=== PATIENT | female | born 1950 | race Caucasian/White ===

== ENCOUNTER 2017-09-10 05:03 | Inpatient (IN) | payer OTHER ==
[2017-08-12 09:45] VITALS: BMI 37.0
--- NOTE | 2017-08-12 10:29 | PAT Medication Instructions ---
Service Date Aug 12, 2017. Current Home Medication List Acetaminophen (Tylenol Arthritis Ext Rel), 2 TAB PO TID Aspirin (Aspir-81), 1 TAB PO QOD Cholecalciferol (Vitamin D3), 1 CAP PO HS Coenzyme Q10 (Ubidecarenone) (Co Q-10), Unknown Dose HS Cyanocobalamin (Vitamin B12), Unknown Dose QAM Diclofenac (Voltaren), 50 MG PO QAM Labetalol (Normodyne), 100 MG PO 11 AM Magnesium Oxide (Magnesium), Unknown Dose PO QAM Metformin Hcl (Glucophage), 500 MG PO BID Rosuvastatin Calcium (Crestor), 10 MG PO HS Tizanidine (Zanaflex), 5 MG PO HS Medication Instructions For Your Scheduled Surgery -Continue as directed: Aspirin (Aspir-81), 1 TAB PO QOD -Follow your surgeon's instructions for: Diclofenac (Voltaren), 50 MG PO QAM - Hold the following medications 2 weeks prior to surgery: Coenzyme Q10 (Ubidecarenone) (Co Q-10), Unknown Dose HS - Hold the following medications the morning of surgery: Cyanocobalamin (Vitamin B12), Unknown Dose QAM Metformin Hcl (Glucophage), 500 MG PO BID Magnesium Oxide (Magnesium), Unknown Dose PO QAM - Take the following medications the morning of surgery with a sip of water: Labetalol (Normodyne), 100 MG PO 11 AM Acetaminophen (Tylenol Arthritis Ext Rel), 2 TAB PO TID (if needed, can be taken up to four hours before surgery) - Take the following medications as scheduled the night before surgery: Cholecalciferol (Vitamin D3), 1 CAP PO HS Metformin Hcl (Glucophage), 500 MG PO BID Acetaminophen (Tylenol Arthritis Ext Rel), 2 TAB PO TID Tizanidine (Zanaflex), 5 MG PO HS Rosuvastatin Calcium (Crestor), 10 MG PO HS If you have any questions please call us at [phone] or [phone] or [phone]
[2017-08-12 12:14] LABS: BASO % 0.2 %; BASO ABS # 0.01 K/uL (0-0.2); EOS % 2.6 %; EOS ABS # 0.12 K/uL (0-0.5); HEMOGLOBIN 13.6 g/dL (12.0-16.0); IG# 0.01 K/uL (0.00-0.02); LYMPH ABS # 0.91 K/uL (1.2-3.4); MEAN CELL VOLUME 88.2 fL (80-100); MEAN CORPUSCULAR HEMOGLOBIN 31.6 pg (25-34); MEAN CORPUSCULAR HGB CONC 35.8 g/dl (32-36); MEAN PLATELET VOLUME 9.6 fL (7.4-10.4); MONO % 14.5 %; MONO ABS # 0.66 K/uL (0.11-0.59); NEUT % 62.5 %; NEUT ABS # 2.83 K/uL (1.4-6.5); PLATELET COUNT 228 K/uL (130-400); RED CELL DISTRIBUTION WIDTH CV 12.7 % (11.5-14.5); RED CELL DISTRIBUTION WIDTH SD 41.3 fL (36.4-46.3); WHITE BLOOD COUNT 4.54 K/uL (4.8-10.8)
[2017-08-12 12:22] LABS: CALCIUM 9.1 mg/dl (8.5-10.1); CREATININE 0.77 mg/dl (0.60-1.20); POTASSIUM 3.8 mmol/L (3.5-5.1)
[2017-08-12 12:31] LABS: PTT PATIENT 23.6 SECONDS (21.0-31.0)
--- NOTE | 2017-08-12 12:34 | DIAGNOSTIC IMAGING REPORT ---
CHEST 2 VIEWS ROUTINE HISTORY: 67 years-old Female PAT preoperative exam. No acute chest complaints. COMPARISON: None available TECHNIQUE: PA and lateral views of the chest FINDINGS: Cardiac silhouette is mildly enlarged. Atherosclerosis of the aorta. Linear subsegmental opacity of the lateral left midlung is noted in addition to more subtle bibasilar subsegmental opacities suggesting atelectasis. There is no pneumothorax, pleural effusion, focal airspace consolidation or overt pulmonary edema. The bones of the chest appear grossly intact. IMPRESSION: Linear subsegmental atelectasis of the lung bases and lateral left midlung without acute process. The above report was generated using voice recognition software. It may contain grammatical, syntax or spelling errors. Electronically signed by: Rei Candelaria M.D. 08/12/2017 12:33 PM Dictated Date/Time: 08/12/2017 12:32 PM
[2017-08-12 12:37] LABS: HEMOGLOBIN A1C 6.4 % (4.5-5.6)
--- NOTE | 2017-09-07 08:54 | HISTORY & PHYSICAL EXAMINATION ---
DATE OF ADMISSION: 09/10/2017 CHIEF COMPLAINT: Left hip and leg pain. HISTORY OF PRESENT ILLNESS: The patient is a 67-year-old female who presents for surgical treatment of her left hip. She has about a 1-year history of gradually and progressively increasing left hip and leg pain. I saw her initially about a year ago and felt most of her pain was coming from her back. She has been seen by Dr. Dietrich and managed over time. It has become clear that more and more pain is coming from her hip. She describes buttock pain, groin pain, thigh pain. She has difficulty putting her shoes and socks on. Her walking tolerance is only a couple blocks. She has a history of Lyme disease but treated for this. Pain has been progressively becoming more debilitating and she would like to have her left hip replaced. X-rays have showed progressive hip arthritis. PAST MEDICAL HISTORY: 1. Hypertension. 2. Elevated cholesterol. 3. Sleep apnea. 4. Diabetes 7-8 years. 5. Arthritis. 6. Low back pain. 7. Kidney stones. PREVIOUS SURGERIES: Include: 1. Hysterectomy. 2. Harrison cyst removed from right knee. 3. Left wrist benign cyst removal. ALLERGIES: PENICILLIN WHICH CAUSES A RASH AND NO RESPIRATORY PROBLEMS. ALSO DESCRIBES ALLERGY TO DAYPRO WHICH CAUSES A RASH AND ERYTHROMYCIN. CURRENT MEDICINES: 1. Metformin 500 mg twice a day. 2. Tizanidine 5 mg a day. 3. Diclofenac 50 mg twice a day. 4. Labetalol 100 mg twice a day. 5. Crestor 10 mg a day. 6. Tylenol Arthritis 2 tablets every 8 hours. 7. Vitamin B12. 8. Coenzyme Q. 9. Vitamin D. 10. Magnesium. 11. Baby aspirin. SOCIAL HISTORY: A 67-year-old female. She is . Lives in [place]. Does not drink. FAMILY HISTORY: Significant for heart disease and diabetes. REVIEW OF SYSTEMS: Significant for diabetes, pretty well controlled. Denies any chest pain or shortness of breath. No evidence of DVT or PE. She does have a history of some nosebleeds on aspirin. PHYSICAL EXAMINATION: GENERAL: A pleasant middle-aged female. Looks to be in pretty good health. HEENT: Benign. NECK: Supple. No lymphadenopathy. LUNGS: Clear to auscultation. HEART: Regular rate and rhythm. ABDOMEN: Soft, nontender, nondistended. EXTREMITIES: Grossly neurovascularly intact except as follows: Examination of left hip and leg reveals the patient walks with a little bit of a limp. Leg lengths clinically appear pretty equal. She does have marked pain with any type of hip motion, particularly internal rotation. She can internally rotate to neutral. Negative straight leg raise. NEUROLOGIC: She is neurologically intact. X-RAYS: X-rays of left hip were reviewed, show advanced left hip DJD. She has complete loss of her joint space. Fairly concentric disease. Bone structure otherwise looks good. X-rays of the lumbar spine reviewed, show some moderate degenerative spondylosis with a little bit of spondylolisthesis of L4-L5, grade 1. ASSESSMENT: A 67-year-old white female with gradual and progressive increasing hip pain over the past year, has become more debilitating, which showed progressive hip arthritis. She has failed conservative care and would like to have her left hip replaced. PLAN: We will take her to the operating room and do left total hip replacement. The risks and benefits of the procedure were explained to the patient including but not limited to DVT, PE, , infection, neurological injury, vascular injury, bleeding problem, pain with range of motion, stiffness, failure to relieve her symptoms, incomplete relief of symptoms, need for further surgery in future, fracture, leg length inequality, nerve palsy, etc. The patient understands and desires to proceed. Informed consent was obtained. I did explain to her that this is not going to fix her back issues but I do not think it is going to help her markedly. We will plan on DVT prophylaxis including low dose aspirin twice a day. If she has nosebleeds, we will have to adjust this. We did talk about holding her metformin 2 days preop and taking her labetalol the morning of surgery. She stopped her diclofenac. She is planning to be discharged home and using [facility] home health program.
[~2017-09-10] VITALS: Ht 152.4 cm; Wt 84.4 kg
[2017-09-10] VITALS (18 sets, daily range): BP systolic 124–189; BP diastolic 76–91; PULSE 52–78; TEMP 36.4–37; O2SAT 90–100; Ht 152.4 cm; Wt 84.4 kg
[~2017-09-10 05:03] MED LIST: ACET1TAB84 PO; ASPI-232 PO; CHOL2000 PO; COEN50CA2; CYAN100020; DICL50TA3 PO; GLC/500 PO; LABE1TAB28 PO; MAGN1TAB41 PO; ROSU5TAB PO; TIZA4CAP PO
[2017-09-10] MEDS: TRANEXAMIC ACID INJ 1,000 MG x 1 Bag Preop IV SCH ×4 (05:49→06:49)
[2017-09-10] MEDS ORDERED: FAMOTIDINE 20 MG TAB PO SCH (06:00)
[2017-09-10] MEDS ORDERED: LACTATED RINGER'S 1000ML IV SCH (06:00)
[2017-09-10] MEDS ORDERED: ACETAMINOPHEN 500 MG TAB PO SCH (06:00)
[2017-09-10] MEDS ORDERED: CEFAZOLIN 2000MG IV PUSH 15 ML IV SCH ×2 (06:00)
[2017-09-10] MEDS ORDERED: LACTATED RINGER'S 1000ML 500 ML IV SCH (06:00)
[2017-09-10] MEDS ORDERED: METOCLOPRAMIDE HCL 10 MG TAB PO SCH (06:00)
[2017-09-10] MEDS ORDERED: LACTATED RINGER'S 1000ML 1,000 ML IV SCH (06:00)
[2017-09-10] MEDS ORDERED: GABAPENTIN 300 MG CAP PO SCH (06:00)
[2017-09-10] MEDS ORDERED: SCOPOLAMINE 1.5 MG TDSY TD ONE (06:05)
[2017-09-10] MEDS ORDERED: BUPIVACAINE 0.5 % 5 MG/1 ML PF 10ML VIAL ONE (06:28)
[2017-09-10] MEDS ORDERED: SCOPOLAMINE 1.5 MG TDSY TD SCH (06:30)
[2017-09-10] MEDS ORDERED: LIDOCAINE HCL 2% 2 ML VIAL (20MG/ML) ONE (06:36)
[2017-09-10] MEDS ORDERED: FENTANYL CITRATE INJ 50 MCG/1 ML 2 ML VIAL ONE (06:36)
[2017-09-10] MEDS ORDERED: PROPOFOL IV EMULSION 10 MG/ML 20 ML VIAL IV ONE (06:36)
[2017-09-10] MEDS ORDERED: MIDAZOLAM HCL 1 MG/ML 2ML VIAL ONE ×2 (06:37)
[2017-09-10] MEDS ORDERED: BUPIVACAINE/EPINEPHRINE 0.5% MPF 1:200,000 30 ML VIAL ONE (06:38)
[2017-09-10] MEDS ORDERED: BACITRACIN 50000 UNIT VIAL ONE (06:38)
--- NOTE | 2017-09-10 06:46 | History & Physical Bridge Note ---
H&P Re-Evaluation Bridge Note: I have examined the patient, reviewed the History & Physical and in the interval since the performance of the History & Physical I have noted the following changes of clinical significance: No changes noted
[2017-09-10] MEDS ORDERED: MoRPHine SULFATE PF 1 MG/ML 10 ML AMP/VIAL ONE (06:48)
[2017-09-10] MEDS ORDERED: SODIUM CHLORIDE 0.9% 1000ML 1,000 ML IV PRN (06:58)
[2017-09-10] MEDS ORDERED: LACTATED RINGER'S 1000ML 500 ML IV PRN (06:58)
[2017-09-10] MEDS ORDERED: NALOXONE HCL INJ 0.08 MG in SYRINGE 1.8 ML IV PRN (06:58)
[2017-09-10] MEDS ORDERED: NALOXONE HCL INJ 1 MG in SODIUM CHLORIDE 0.9% 1000ML 1,000 ML IV PRN (06:58)
[2017-09-10] MEDS ORDERED: ATROPINE SULFATE 0.1 MG/ML 5ML SYR IV PRN (07:00)
[2017-09-10] MEDS ORDERED: MEPERIDINE HCL 25 MG/ML CARP IV PRN (07:00)
[2017-09-10] MEDS ORDERED: DiphenhydrAMINE HCL 50 MG/ML VIAL IV PRN ×2 (07:00→08:45)
[2017-09-10] MEDS ORDERED: NALOXONE HCL 0.4 MG/1 ML VIAL/CARP IV PRN (07:00)
[2017-09-10] MEDS ORDERED: EpHEDrine SULFATE INJ 50 MG/ML AMP IV PRN ×2 (07:00)
[2017-09-10] MEDS ORDERED: NO NARCOTICS OR SEDATIVES SCH (07:00)
[2017-09-10] MEDS ORDERED: MoRPHine SULFATE PF 1 MG/ML 10 ML AMP/VIAL EPI PRN (07:00)
[2017-09-10] MEDS ORDERED: NALBUPHINE HCL INJ 10 MG/ML AMP IV PRN (07:00)
[2017-09-10] MEDS ORDERED: ONDANSETRON INJ 2 MG/ML 2 ML VIAL IV PRN (07:00)
[2017-09-10] MEDS ORDERED: FENTANYL CITRATE INJ 50 MCG/1 ML 2 ML VIAL IV PRN (07:00)
--- NOTE | 2017-09-10 08:36 | [facility] Post Operative Brief Note ---
Immediate Operative Summary Operative Date Sep 10, 2017. Pre-Operative Diagnosis Advanced Left Knee Degenerative Joint Disease Post-Operative Diagnosis Advanced Left Knee Degenerative Joint Disease Procedure(s) Performed Left Total Hip Arthroplasty Uncemented Surgeon Dr Zay Archibald Product Development Worker Surgeon(s) Marty Romano PA-C Estimated Blood Loss 200cc Findings Consistent with Post-Op Diagnosis Specimens As Per Surgeon A. Left Femoral Head Drains None Anesthesia Type Spinal MAC Complication(s) none Disposition Accompanied Pt To Recover: yes Disposition: Recovery Room / PACU
[2017-09-10] MEDS ORDERED: METOCLOPRAMIDE HCL INJ 5 MG/ML 2 ML VIAL IV PRN (08:45)
[2017-09-10] MEDS ORDERED: GLUCOSE 10 TABS/TUBE PO PRN (08:45)
[2017-09-10] MEDS ORDERED: MAGNESIUM HYDROXIDE SUSP 30 ML UDC PO PRN (08:45)
[2017-09-10] MEDS ORDERED: GLUCAGON FOR INJ 1 MG VIAL SQ PRN (08:45)
[2017-09-10] MEDS ORDERED: GLUCOSE 40% GEL 15 GM TUBE PO PRN (08:45)
[2017-09-10] MEDS ORDERED: DEXTROSE 50% 50 ML SYR IV PRN (08:45)
[2017-09-10] MEDS ORDERED: SILVER SULFADIAZINE 1% CR 50 GM JAR EXT PRN (08:45)
[2017-09-10] MEDS ORDERED: BISACODYL 10 MG SUPP PR PRN (08:45)
[2017-09-10] MEDS ORDERED: ALUMINUM/MAGNESIUM/SIMETH (MAALOX MAX) 30 ML UDC PO PRN (08:45)
--- NOTE | 2017-09-10 09:11 | OPERATIVE REPORT ---
DATE OF OPERATION: 09/10/2017 SURGEON: Zay Archibald MD. RESPONDER: SADIE Martinez. PREOPERATIVE DIAGNOSIS: Left hip degenerative joint disease. POSTOPERATIVE DIAGNOSIS: Same. PROCEDURE PERFORMED: Left uncemented ceramic on highly cross-linked polyethylene total hip arthroplasty. COMPLICATIONS: None. ESTIMATED BLOOD LOSS: 200 mL FLUID REPLACEMENT: 1100 mL crystalloid fluid replacement. ANESTHESIA: Spinal. DRAINS: None. SPECIMENS: Left femoral head sent for pathology. OPERATIVE INDICATIONS: The patient is a 67-year-old female who has had a 1-year history of markedly progressive increasing left hip pain and discomfort. She has been through extensive and conservative management without adequate relief. X-rays show progressive hip arthritis over the past year. The patient elected to proceed with total hip arthroplasty. OPERATIVE FINDINGS: Operative findings revealed advanced left hip DJD. She had grade 4 [id number] disease of the femoral head and acetabulum. She did have some osteophytes, particularly at the base of the femoral neck as well as the acetabulum. OPERATIVE IMPLANTS: Operative implants consisted of: 1. Biomet G7 size 48 mm acetabular shell. 2. 6.5 cancellous acetabular screws, 1 at 35 mm length and 1 at 25 mm length. 3. An apex hole eliminator. 4. A highly cross-linked polyethylene liner with a 48 mm outer diameter and 28 mm inner diameter. 5. A DePuy Corail size 10 coxa vara femoral stem. 6. A +1.5/28 mm ceramic articular ball. OPERATIVE PROCEDURE: The patient taken to the operating room, identified and placed on the operating table in supine position. All contact areas were appropriately padded. IV antibiotics were provided by anesthesia team. Spinal anesthetic had been implemented in the holding area. Muller catheter was placed in sterile fashion. The patient was then placed in the right lateral decubitus position. An axillary roll was placed. Stulberg hip positioner was used for positioning. Left hip and leg were then prepped and draped in usual sterile fashion. A posterolateral approach to the left hip was then performed through a curvilinear incision centered over the greater trochanter. Sharp dissection was carried out through subcutaneous tissue down to the level of the IT band and gluteal fascia. The IT band and gluteal fascia were then incised longitudinally in line with skin incision. The underlying greater trochanteric bursa was excised. The bursa was quite thickened. The piriformis and external rotators were then tagged and taken off the posterior aspect of the hip joint capsule. Great care was taken throughout the procedure to protect the sciatic nerve at all times. Posterior capsulotomy was then performed, leaving a large flap for later repair. Hip was internally rotated and dislocated. Femoral neck osteotomy cut was made with the final cut about 10 mm above the lesser trochanter. Femoral head was removed and sent for pathology. The femur was retracted anteriorly. Attention was then drawn to the acetabulum. The acetabular labrum was excised. The pulvinar fat was excised. Sequential reaming of the acetabulum was then performed beginning with a size 43 and progressing up to a 47. A 48 mm Biomet G7 acetabular shell was then placed in about 40 degrees of lateral opening and 20 degrees of anteversion. It was fixed with two 6.5 cancellous acetabular screws. A trial liner was placed. Some osteophytes were taken off the anterior aspect of the acetabulum. Our attention was then drawn to the femur. The proximal femur was entered with a cookie cutter, followed by a canal finder. I then broached beginning with a size 8 and progressing up to a 10. We got excellent fit with the 10. I then used a calcar reamer to smoothen off the calcar. We then trialed the hip and the +5 articular ball provided full stability but the soft tissue tension just seemed tight and with increased offset. Therefore, I elected to place the 1.5 head which provided full stability in full extension and external rotation and flexion to 90 degrees, internal rotation to 50+ degrees. Leg lengths appeared equal. Soft tissue tension seemed appropriate. We elected to place these implants. All trial implants were removed. An apex hole eliminator was placed. Highly cross-linked polyethylene liner was placed. A size 10 Corail coxa vara femoral stem was then impacted in position. A +1.5/28 mm ceramic articular ball was placed. The hip was located and once again found to be stable. Attention was then drawn toward closing. The wound was irrigated with copious amounts of pulsatile lavage solution. I did inject locally with 60 mL of 0.5% Marcaine with epinephrine. The posterior capsule and external rotators were repaired through drill holes in the posterior trochanter with #2 Ti-Cron suture. The IT band and gluteal fascia were then closed with #1 PDS suture in running fashion. Subcutaneous tissue then closed in 2 layers with the deep layer with #2 Vicryl suture and subcutaneous tissues with 2-0 Dexon suture in buried interrupted fashion. Skin was closed with skin linden. Leg was then cleaned, dried, and a sterile dressing of Xeroform, 4 x 4's, sterile ABD pad and foam tape was applied. The patient then transferred to the recovery room in stable condition. The patient tolerated the procedure well with no complication. All needle and sponge counts were correct at the end of the operation. I attest to the content of the Intraoperative Record and any orders documented therein. Any exception s are noted below.
--- NOTE | 2017-09-10 09:27 | Anesthesiology Progress Note ---
Anesthesia Post Op Note Date & Time Sep 10, 2017 at 09:27 Vital Signs Pain Intensity: 0 Vital Signs Past 12 Hours Date Time Temp Pulse Resp B/P (MAP) Pulse Ox O2 Delivery O2 Flow Rate FiO2 09/10/17 09:22 37.1 61 15 09/10/17 09:22 60 15 171/83 94 09/10/17 09:17 65 12 09/10/17 09:17 66 12 164/95 96 09/10/17 09:12 56 13 154/69 96 09/10/17 09:12 56 13 09/10/17 09:07 58 18 153/73 96 09/10/17 09:07 58 18 09/10/17 09:02 59 12 152/73 93 09/10/17 09:02 59 12 09/10/17 08:57 58 13 171/81 95 09/10/17 08:57 59 13 09/10/17 08:52 64 13 09/10/17 08:52 64 13 160/78 97 09/10/17 08:47 73 13 95 09/10/17 08:47 73 13 09/10/17 08:46 158/74 09/10/17 08:42 71 16 09/10/17 08:42 71 16 134/71 98 09/10/17 08:39 126/60 09/10/17 08:32 37 71 16 122/62 97 Nasal Cannula 3 09/10/17 05:36 36.6 74 18 180/86 97 Room Air Notes Mental Status: alert / awake / arousable, participated in evaluation Pt Amnestic to Procedure: Yes Nausea / Vomiting: adequately controlled Pain: adequately controlled Airway Patency, RR, SpO2: stable & adequate BP & HR: stable & adequate Hydration State: stable & adequate Neuraxial Anesthesia: was administered, sensory block is resolving Anesthetic Complications: no major complications apparent
--- NOTE | 2017-09-10 09:50 | DIAGNOSTIC IMAGING REPORT ---
L PELVIS/UNILATERAL HIP 1 VIEW CLINICAL HISTORY: Left hip osteoarthritis. Arthroplasty. COMPARISON: Left hip radiographs June 20, 2017. FINDINGS: Alignment of the total left hip arthroplasty is anatomic. There are skin linden and 2 acetabular screws. There is no fracture or unexpected radiopaque foreign body. IMPRESSION: Expected findings following total left hip arthroplasty. Electronically signed by: Jack Altamirano M.D. 09/10/2017 9:49 AM Dictated Date/Time: 09/10/2017 9:48 AM
[2017-09-10] MEDS: ONDANSETRON INJ 2 MG/ML 2 ML VIAL IV PRN ×2 (09:55→16:24)
[2017-09-10] MEDS: DOCUSATE SODIUM 100 MG CAP PO SCH ×2 (10:23→20:13)
[2017-09-10] MEDS: SODIUM CHLORIDE 0.9% 1000ML 1,000 ML IV SCH ×2 (10:24→20:14)
[2017-09-10] MEDS: KETOROLAC TROMETHAMINE 15 MG/ML VIAL IV. SCH ×3 (11:27→23:53)
[2017-09-10] MEDS: INSULIN HUMAN REGULAR SC SCH ×3 (11:53→20:53)
[2017-09-10] MEDS: FERROUS GLUCONATE 324 MG TAB PO SCH ×2 (11:55→17:45)
[2017-09-10] MEDS: ACETAMINOPHEN 500 MG TAB PO SCH ×2 (13:31→22:08)
[2017-09-10] MEDS: CEFAZOLIN IV 2,000 MG in SYRINGE 0 ML IV SCH ×2 (14:27→22:08)
[2017-09-10] MEDS ORDERED: TRANEXAMIC ACID INJ 1,000 MG in SODIUM CHLORIDE 0.9% 100ML 100 ML IV SCH (14:30)
--- NOTE | 2017-09-10 16:57 | PROGRESS NOTE ---
DATE: 09/10/2017 SUBJECTIVE: A 67-year-old white female postop from a left hip replacement. Doing pretty well. No pain at all yet. Mostly just nausea. She has had a couple of emesis. Denies any chest pain or shortness of breath. OBJECTIVE: VITAL SIGNS: Temperature 36.5. Vital signs stable. Blood pressure is slightly elevated. GENERAL: Reveals a pleasant elderly female. She is sitting up in bed. Currently not ill but ____ feeling quite nauseated. LUNGS: Clear to auscultation. HEART: Regular rate and rhythm. ABDOMEN: Soft, nontender, nondistended. EXTREMITIES: Grossly neurovascularly intact except as follows: Examination of left leg reveals leg lengths were equal. Dressing is clean, dry and intact. Thigh is soft and supple. Hip is located. She can dorsiflex and plantarflex her foot appropriately. She is neurologically intact. ASSESSMENT: A 67-year-old white female postop from a left hip replacement, doing pretty well. The main issue is nausea likely related to the intraspinal morphine. She has a scopolamine patch in place. She has given some antinausea medicine. PLAN: 1. DVT prophylaxis including thigh TEDs, SCDs, and aspirin twice a day. 2. PT/OT. Weightbear as tolerated. Left total hip protocol. 3. Pain control, doing well with current pain regimen. 4. Nausea. Will continue antinausea medicine. Continue IV hydration. 5. IV antibiotics x24 hours. 6. Disposition: Plan to discharge to home with home health once adequately recovered.
[2017-09-10] MEDS: CHOLECALCIFEROL 1000 INTER.UNIT TAB PO SCH (20:12)
[2017-09-10] MEDS: ROSUVASTATIN CALCIUM 10 MG TAB PO SCH (20:13)
[2017-09-10] MEDS: ASPIRIN 81 MG ECTAB PO SCH (20:13)
[2017-09-10] MEDS: SENNA 8.6 MG TAB PO SCH (20:13)
[2017-09-10] MEDS ORDERED: FRRG PO (20:41)
[2017-09-10] MEDS ORDERED: ASPEC81 PO (20:41)
[2017-09-10] MEDS ORDERED: ACET-24 PO (20:41)
[2017-09-10] MEDS ORDERED: ULT50X PO (20:41)
--- NOTE | 2017-09-10 20:44 | Discharge Instructions ---
Discharge Instructions Date of Service Sep 10, 2017. Admission Reason for Admission: Left Hip Degenerative Joint Disease Discharge Discharge Diagnosis / Problem: Left Hip Replacement Discharge Goals Goal(s): Decrease discomfort, Improve function, Increase independence, Improve disease control, Therapeutic intervention Activity Recommendations Activity Limitations: per Instructions/Follow-up section (Total Hip Precautions ) Weightbearing Status: Left weightbearing . Instructions / Follow-Up Instructions / Follow-Up ACTIVITY RECOMMENDATIONS: Physical Therapy: * Aggressive physical therapy is not usually needed. You will learn to take care of yourself safely and walk. * Follow the "Hip Precautions Instructions." * In some cases, the 7th grade social studies teacher at the hospital will arrange to have a therapist come to your house for the first couple of weeks to help you learn these skills. * You need to practice on your own or with the help of a family member as needed. * When you learn these skills, most of the therapy can be done on your own. Home Exercise: * You were shown a series of exercises in the hospital. Do these exercises three to four times each day including the exercises you were shown in physical therapy. Walking: * Get up and walk several times each day. For the first four weeks, try not to stand or walk for more than one hour at a time. If you do stand or walk for more than one hour, you will not hurt anything, but your leg will likely swell. * As you feel comfortable, you may change from the walker or crutches to a cane and then to independent walking. MEDICATIONS: New Medicine: * You will likely be taking one or more of these medicines: 1. Tramadol - Take, as directed, when you need it, every four to six hours to control your pain. 2. Iron Sulfate - Take two times each day for the month after surgery to help you replace the blood lost during surgery. 3. Aspirin - Thins your blood to lessen the chance of forming a blood clot. * The most common side effects of pain medicine and iron are nausea and constipation. If nausea or constipation is too much of a problem or if you have any questions about your new medicines or doses, call [facility] at [phone]. We will try to help you manage these issues. VERY IMPORTANT TO READ AND REVIEW" Pain: * The immediate post-operative period after hip replacement surgery is often quite painful. * You are given a prescription for pain medicine. You should take it, as directed, when you need it, especially before physical therapy and before going to bed. Pain that interferes with sleep is very common and can last several months. * You will likely need pain medicine for the first two to four weeks. It will not stop all of the pain. The pain will lessen and as you feel better, you may change to milder pain medicine such as Tylenol. * The most common side effects of pain medicine are nausea and constipation, so don't take more than you need. SPECIAL CARE INSTRUCTIONS: TEDs/Elastic Stockings: * The white elastic stockings help limit swelling and prevent blood clots from forming in your legs. The more you wear them, the more they work. * Wear them for six weeks. Prevention of Infection: * Take antibiotics one hour before any dental cleaning, dental work, urological procedure, gastrointestinal procedure or any invasive surgery in order to prevent your new joint from getting infected. * You may get the antibiotics from the doctor performing the procedure or you may call our office at before and we will call in a prescription to the pharmacy of your choice. Things to Watch For: * Drainage from the incision site that occurs more than one week after your surgery. * Severely increased leg pain or swelling. * Increased redness at the incision site. * Fever above 102 degrees Fahrenheit. * Unusual chest pain or shortness of breath. * Unusual pain or burning with urination. Call [facility] at with any of the above problems or if you have any questions about your medicines or recovery. FOLLOW UP VISIT: Make an appointment to see your doctor for approximately two weeks after surgery for a progress check and staple removal by calling the office at . Current Hospital Diet Patient's current hospital diet: Diabetes Type 2 Diet Discharge Diet Recommended Diet: Diabetes Type 2 Diet Procedures Procedures Performed: Left Total Hip Arthroplasty Uncemented Pending Studies Studies pending at discharge: no Laboratory Results Hemoglobin A1c Test 08/12/17 10:45 Range/Units Estimated Average Glucose 137 mg/dl Hemoglobin A1c 6.4 H 4.5-5.6 % Medical Emergencies . Who to Call and When: Medical Emergencies: If at any time you feel your situation is an emergency, please call [phone] immediately. . Non-Emergent Contact Non-Emergency issues call your: Surgeon . "Provider Documentation" section prepared by Zay Archibald. .
[2017-09-11] VITALS (8 sets, daily range): BP systolic 127–199; BP diastolic 70–78; PULSE 71–107; TEMP 36.4–37.1; O2SAT 92–99
[2017-09-11] MEDS ORDERED: ZOLPIDEM TARTRATE 5 MG TAB PO PRN (01:00)
[2017-09-11] MEDS ORDERED: DC INTRASPINAL MORPHINE SCH (01:00)
[2017-09-11] MEDS ORDERED: HYDROmorphone INJ 0.5 MG/0.5 ML SYR IV PRN (01:00)
[2017-09-11] MEDS ORDERED: ONDANSETRON INJ 2 MG/ML 2 ML VIAL IV PRN (01:00)
[2017-09-11] MEDS: KETOROLAC TROMETHAMINE 15 MG/ML VIAL IV. SCH (05:50)
[2017-09-11] MEDS: ACETAMINOPHEN 500 MG TAB PO SCH ×3 (05:50→22:27)
[2017-09-11] MEDS: SODIUM CHLORIDE 0.9% 1000ML 1,000 ML IV SCH (05:51)
--- NOTE | 2017-09-11 06:25 | Clinical Documentation Query ---
CLINICAL DOCUMENTATION QUERY A discrepancy exists in the Operative Summary Note. Pre-Operative and Post-Operative Diagnosis lists "Advanced Left Knee Degenerative Joint Disease" and Procedure Performed lists "Left Total Hip Arthroplasty Uncemented". In your clinical opinion is this patient being managed for: ( x ) Advanced Left Hip Degenerative Joint Disease ( ) Not Agree ( ) Other explanation of clinical findings (Please Explain) ( ) Unable to determine (Please Define) ( ) Need to Discuss Please clarify and document your clinical opinion in the progress notes and discharge summary. Terms such as "probable", "suspected", "likely", "questionable", "possible", or "still to be ruled out" are acceptable. IF IN AGREEMENT, YOU MUST DOCUMENT ABOVE DIAGNOSTIC STATEMENT IN DAILY PROGRESS NOTES AND DISCHARGE SUMMARY. This document is not part of the patient's record. Thank You, Gale Cervantes RN [phone]
[2017-09-11 06:50] LABS: BASO % 0.1 %; BASO ABS # 0.01 K/uL (0-0.2); EOS % 0.5 %; EOS ABS # 0.05 K/uL (0-0.5); HEMATOCRIT 34.5 % (37-47); HEMOGLOBIN 12.1 g/dL (12.0-16.0); IG# 0.04 K/uL (0.00-0.02); LYMPH % 17.4 %; MEAN CELL VOLUME 89.6 fL (80-100); MEAN CORPUSCULAR HEMOGLOBIN 31.4 pg (25-34); MEAN CORPUSCULAR HGB CONC 35.1 g/dl (32-36); MEAN PLATELET VOLUME 9.4 fL (7.4-10.4); MONO % 10.1 %; MONO ABS # 1.04 K/uL (0.11-0.59); NEUT % 71.5 %; NEUT ABS # 7.39 K/uL (1.4-6.5); PLATELET COUNT 223 K/uL (130-400); RED CELL DISTRIBUTION WIDTH CV 13.5 % (11.5-14.5); RED CELL DISTRIBUTION WIDTH SD 43.9 fL (36.4-46.3); WHITE BLOOD COUNT 10.33 K/uL (4.8-10.8)
[2017-09-11 07:19] LABS: CALCIUM 8.5 mg/dl (8.5-10.1); CREATININE 1.29 mg/dl (0.60-1.20); POTASSIUM 3.8 mmol/L (3.5-5.1)
[2017-09-11] MEDS: DOCUSATE SODIUM 100 MG CAP PO SCH ×2 (09:21→21:00)
[2017-09-11] MEDS: INSULIN HUMAN REGULAR SC SCH ×4 (09:21→21:00)
[2017-09-11] MEDS: PANTOprazole SOD 40 MG TAB PO SCH (09:22)
[2017-09-11] MEDS: FERROUS GLUCONATE 324 MG TAB PO SCH ×4 (09:23→17:45)
[2017-09-11] MEDS: LABETALOL HCL 100 MG TAB PO SCH (09:23)
[2017-09-11] MEDS: MULTIVITAMIN TAB PO SCH (09:24)
[2017-09-11] MEDS: ASPIRIN 81 MG ECTAB PO SCH ×2 (09:24→21:00)
--- NOTE | 2017-09-11 10:14 | PROGRESS NOTE ---
DATE: 09/11/2017 SUBJECTIVE: A 67-year-old white female postop day 1 from a left hip replacement. She is doing much better. The nausea is gone. Denies any significant pain. No chest pain or shortness of breath. Not feeling dizzy or lightheaded. OBJECTIVE: VITAL SIGNS: Temperature 36.5. Vital signs stable. GENERAL: Reveals a pleasant, middle-aged female. She is sitting up in bed, looks quite comfortable. LUNGS: Clear to auscultation. HEART: Regular rate and rhythm. ABDOMEN: Soft, nontender, nondistended. EXTREMITIES: Grossly neurovascularly intact except as follows. Examination of the left hip and leg reveals the leg to be well aligned. Hip is located. Dressing is clean, dry and intact. Her thigh is soft and supple. She can dorsiflex and plantarflex her foot appropriately. LABORATORY DATA: Hemoglobin 12.1, hematocrit 34.5. Electrolytes are stable. Creatinine is slightly elevated. ASSESSMENT: A 67-year-old white female postop day 1 from a left hip replacement, doing pretty well. Pain is controlled. Hip is located. She is neurologically intact. Blood pressure is improved. PLAN: 1. DVT prophylaxis including thigh high TEDs, SCDs, and aspirin twice a day. 2. PT, OT. Weight bear as tolerated. Left total hip protocol. 3. Pain control, doing pretty well with current pain regimen. We are going to stop her Toradol due to the elevated creatinine. 4. Disposition: She is hoping to be discharged to home with home health once adequately recovered.
[2017-09-11] MEDS: CHECK SCOPOLAMINE PATCH PLACEMENT SCH ×2 (15:49→23:38)
[2017-09-11] MEDS: ROSUVASTATIN CALCIUM 10 MG TAB PO SCH (21:00)
[2017-09-11] MEDS: SENNA 8.6 MG TAB PO SCH (21:00)
[2017-09-11] MEDS: CHOLECALCIFEROL 1000 INTER.UNIT TAB PO SCH (21:00)
[2017-09-11] MEDS: TRAMADOL HCL 50 MG TAB PO PRN (23:47)
[2017-09-12 00:25] VITALS: BP 190/79; PULSE 106
--- NOTE | 2017-09-12 02:01 | Medical Consult ---
Consultation Date of Consultation: Sep 12, 2017. Attending Physician: Zay Archibald M.D. Reason for Consultation: Blood pressure medical management History of Present Illness Patient is a 67yo C female with history of HTN, HLP, DM s/p left hip arthroplasty POD#1. Patient is complaining of discomfort, "restlessness" and spasm of the left leg this evening. She has had some elevated blood pressure readings as well, 190/79 at present. Patient has a history of HTN for which she takes Labetalol 100mg po daily as an outpatient. She reports that her blood pressure is well controlled on this regimen. She was taking the Labetalol BID in the past which caused her headaches. She was administered Tramadol at 23:47 with minimal improvement in discomfort. She refused Zanaflex this evening. No additional complaints. Past Medical/Surgical History 1. Hypertension 2. Diabetes - 7-8 years, well controlled on Metformin 500mg po BID - AIC=6.4 3. HLP 4. CACHORRO - on CPAP qHS 5. Lyme disease s/p treatment 6. Kidney stones 7. Low back pain Family History Diabetes Heart disease Social History Smoking Status: Never Smoker Smokeless Tobacco Use: No Alcohol Use: none Drug Use: none Marital Status: Housing Status: lives with family Allergies Coded Allergies: Oxaprozin (Verified Allergy, Intermediate, RASH, 09/10/17) Penicillins (Verified Allergy, Intermediate, HIVES, 09/10/17) Erythromycin (Verified Adverse Reaction, Mild, N/V, 09/10/17) Home Medications 1. Metformin 500 mg twice a day. 2. Tizanidine 5 mg a day. 3. Diclofenac 50 mg twice a day. 4. Labetalol 100 mg daily. 5. Crestor 10 mg a day. 6. Tylenol Arthritis 2 tablets every 8 hours. 7. Vitamin B12. 8. Coenzyme Q. 9. Vitamin D. 10. Magnesium. 11. Baby aspirin. Current Inpatient Medications Current Inpatient Medications Medications (Trade) Dose Ordered Sig/Farzaneh Route Start Time Stop Time Status Last Admin Dose Admin Miscellaneous (Remove Transderm-Scop Patch) 1 ea Q72H N/A 09/13/17 06:00 09/13/17 06:01 Miscellaneous Information (Check Scopolamine Patch Placement) 1 ea QS N/A 09/11/17 16:00 09/14/17 05:59 Acetaminophen (Tylenol Tab) 1,000 mg Q8H PO 09/10/17 14:00 10/10/17 13:59 09/11/17 22:27 1,000 MG Magnesium Hydroxide (Milk Of Magnesia Susp) 30 ml Q6H PRN PO 09/10/17 08:45 10/10/17 08:44 Bisacodyl (Dulcolax Supp) 10 mg DAILY PRN W[place] 09/10/17 08:45 10/10/17 08:44 Senna (Senokot Tab) 17.2 mg HS PO 09/10/17 21:00 10/10/17 20:59 09/11/17 21:00 17.2 MG Docusate Sodium (coLACE CAP) 100 mg BID PO 09/10/17 10:30 10/10/17 10:29 09/11/17 21:00 100 MG Diphenhydramine HCl (Benadryl Cap) 25 mg Q8H PRN PO 09/10/17 08:45 10/10/17 08:44 Diphenhydramine HCl (Benadryl Inj) 25 mg Q8H PRN IV 09/10/17 08:45 10/10/17 08:44 Future hold Al Hydrox/Mg Hydrox/Simethicone (Maalox Max Susp) 15 ml Q4H PRN PO 09/10/17 08:45 10/10/17 08:44 Zolpidem Tartrate (Ambien Tab) 5 mg HSZ PRN PO 09/11/17 01:00 10/11/17 00:59 Multivitamins (Multivitamin Tab) 1 tab QAM PO 09/11/17 09:00 10/11/17 08:59 09/11/17 09:24 1 TAB Ondansetron HCl (Zofran Inj) 4 mg Q6H PRN IV 09/11/17 01:00 10/11/17 00:59 Metoclopramide HCl (Reglan Inj) 10 mg Q6H PRN IV 09/10/17 08:45 10/10/17 08:44 09/10/17 13:48 10 MG Ferrous Gluconate (Ferrous Gluconate Tab) 324 mg TIDM PO 09/10/17 12:30 10/10/17 12:29 09/11/17 17:45 324 MG Pantoprazole Sodium (Protonix Tab) 40 mg QAM PO 09/11/17 09:00 09/15/17 08:59 09/11/17 09:22 40 MG Silver Sulfadiazine (Silvadene 1% Crm 50GM Jar) 1 appln BID PRN EXT 09/10/17 08:45 10/10/17 08:44 Tramadol HCl (Ultram Tab) 1 TABLET FOR PAIN RATING... Q4H PRN PO 09/11/17 01:00 10/11/17 00:59 09/11/17 23:47 100 MG Aspirin (Ecotrin Tab) 81 mg BID PO 09/10/17 21:00 10/10/17 20:59 09/11/17 21:00 81 MG Hydromorphone HCl (Dilaudid Inj) 0.5 mg Q1H PRN IV 09/11/17 01:00 09/25/17 00:59 Labetalol HCl (Normodyne Tab) 100 mg DAILY PO 09/11/17 09:00 10/11/17 08:59 09/11/17 09:23 100 MG Rosuvastatin Calcium (Crestor Tab) 10 mg HS PO 09/10/17 21:00 10/10/17 20:59 09/10/17 20:13 10 MG Cholecalciferol (Vitamin D Tab) 2,000 inter.unit HS PO 09/10/17 21:00 10/10/17 20:59 09/10/17 20:12 2,000 INTER.UNIT Tizanidine HCl (Zanaflex Tab) 4 mg HS PO 09/11/17 21:00 10/11/17 20:59 Insulin Human Regular (novoLIN-R) SLIDING SCALE ACHS SC 09/10/17 11:00 10/10/17 10:59 Glucose (Glucose 40% Gel) 15-30 GRAMS 15 GRAMS... UD PRN PO 09/10/17 08:45 10/10/17 08:44 Glucose (Glucose Chew Tab) 4-8 Tablets 4 Tabl... UD PRN PO 09/10/17 08:45 10/10/17 08:44 Dextrose (Dextrose 50% 50ML Syringe) 25-50ML OF 50% DW IV FOR... UD PRN IV 09/10/17 08:45 10/10/17 08:44 Glucagon (Glucagon Inj) 1 mg UD PRN SQ 09/10/17 08:45 10/10/17 08:44 Review of Systems Constitutional: No fever, No chills, No weakness Respiratory: No cough, No wheezing, No shortness of breath Cardiovascular: No chest pain, No edema, No palpitations Abdomen: No pain, No nausea, No vomiting, No diarrhea Musculoskeletal: No swelling Genitourinary - Female: No dysuria, No urinary frequency, No urinary urgency Physical Exam Date Time Temp Pulse Resp B/P (MAP) Pulse Ox O2 Delivery O2 Flow Rate FiO2 09/12/17 00:25 106 190/79 (116) 09/11/17 23:45 Room Air 09/11/17 23:36 37.1 106 16 196/74 (114) 94 Room Air 107 199/76 (117) 09/11/17 15:50 37.1 99 16 156/74 (101) 99 Room Air 09/11/17 15:30 Room Air 09/11/17 11:55 36.4 74 18 156/78 (104) 97 Room Air 09/11/17 08:42 98 Room Air 09/11/17 08:00 36.5 72 18 130/70 (90) 98 Room Air 09/11/17 07:20 Room Air 09/11/17 02:55 36.9 71 16 127/73 (91) 94 CPAP General: AA&O x 4, pleasant, NAD Skin: warm, dry, surgical dressing c/d/i, no rashes/lesions HEENT: NC/AT, PERRL, EOMI, anicteric sclera, conjunctiva without injection, neck supple, trachea midline, moist oral mucosa Heart: +S1/S2, regular, 3/6 NA and left sternal border with radiation across the precordium, no rubs/gallops Lungs: equal air entry bilaterally, no rales/rhonchi/wheezes Abdomen: +BS, soft, NT/ND, no masses/organomegaly Extremities: muscle tightening of LLE quadricep, mild tenderness with palpation , palpable distal pulses Neuro: grossly nonfocal Laboratory Results Last 24 Hours Test 09/11/17 06:37 09/11/17 08:21 09/11/17 12:03 09/11/17 16:39 White Blood Count 10.33 K/uL Red Blood Count 3.85 M/uL Hemoglobin 12.1 g/dL Hematocrit 34.5 % Mean Corpuscular Volume 89.6 fL Mean Corpuscular Hemoglobin 31.4 pg Mean Corpuscular Hemoglobin Concent 35.1 g/dl Platelet Count 223 K/uL Mean Platelet Volume 9.4 fL Neutrophils (%) (Auto) 71.5 % Lymphocytes (%) (Auto) 17.4 % Monocytes (%) (Auto) 10.1 % Eosinophils (%) (Auto) 0.5 % Basophils (%) (Auto) 0.1 % Neutrophils # (Auto) 7.39 K/uL Lymphocytes # (Auto) 1.80 K/uL Monocytes # (Auto) 1.04 K/uL Eosinophils # (Auto) 0.05 K/uL Basophils # (Auto) 0.01 K/uL RDW Standard Deviation 43.9 fL RDW Coefficient of Variation 13.5 % Immature Granulocyte % (Auto) 0.4 % Immature Granulocyte # (Auto) 0.04 K/uL Sodium Level 138 mmol/L Potassium Level 3.8 mmol/L Chloride Level 105 mmol/L Carbon Dioxide Level 24 mmol/L Anion Gap 9.0 mmol/L Blood Urea Nitrogen 24 mg/dl Creatinine 1.29 mg/dl Est Creatinine Clear Calc Drug Dose 41.9 ml/min Estimated GFR () 50.3 Estimated GFR (Non- 43.4 BUN/Creatinine Ratio 18.9 Random Glucose 117 mg/dl Calcium Level 8.5 mg/dl Bedside Glucose 103 mg/dl 94 mg/dl 145 mg/dl Test 09/11/17 20:36 Bedside Glucose 151 mg/dl Assessment & Plan 67yo C female s/p left hip arthroplasty POD #1 with elevated blood pressure in setting of post-operative spasm and discomfort 1. Hypertension - patient with blood pressure 127-199/70-79 over the last 24 hours. Elevated readings this evening coincide with patient discomfort and muscle spasm. Patient reports adequate blood pressure control with Labetalol 100mg po daily. -Continue Labetalol 100mg po daily -Pain and spasm control with agents written by primary team. -Patient encouraged to take dose of Zanaflex tonight and qHS PRN to alleviate muscle spasm -Patient has PRN Ambien ordered already for insomnia -Will place order for PRN IV Labetalol if blood pressure remains elevated 2. Diabetes - blood sugars adequately controlled on current regimen. Last A1C= 6.4, adequate outpatient control. -Continue current insulin regimen -Resume Metformin 500mg po BID on discharge 3. Hyperlipidemia - stable. -Continue Crestor Thank you for this consult
[2017-09-12 03:02] VITALS: BP 124/70; PULSE 78
[2017-09-12] MEDS: ACETAMINOPHEN 500 MG TAB PO SCH ×2 (06:07→13:57)
[2017-09-12 06:40] VITALS: BP 118/68; PULSE 73; TEMP 37; O2SAT 95
[2017-09-12] MEDS: CHECK SCOPOLAMINE PATCH PLACEMENT SCH (07:20)
[2017-09-12] MEDS: DOCUSATE SODIUM 100 MG CAP PO SCH (07:20)
[2017-09-12] MEDS: FERROUS GLUCONATE 324 MG TAB PO SCH ×2 (07:20→12:30)
[2017-09-12] MEDS: ASPIRIN 81 MG ECTAB PO SCH (07:21)
[2017-09-12] MEDS: MULTIVITAMIN TAB PO SCH (07:21)
[2017-09-12] MEDS: LABETALOL HCL 100 MG TAB PO SCH (07:21)
[2017-09-12] MEDS: PANTOprazole SOD 40 MG TAB PO SCH (07:21)
[2017-09-12] MEDS: INSULIN HUMAN REGULAR SC SCH ×2 (07:22→12:41)
[2017-09-12 07:23] LABS: CALCIUM 8.6 mg/dl (8.5-10.1); CREATININE 0.98 mg/dl (0.60-1.20); POTASSIUM 3.6 mmol/L (3.5-5.1)
[2017-09-12] MEDS: TRAMADOL HCL 50 MG TAB PO PRN ×3 (07:24→13:57)
[2017-09-12] MEDS ORDERED: NURSING VERBAL MED ORDER ONE (07:30)
--- NOTE | 2017-09-12 07:55 | PROGRESS NOTE ---
DATE: 09/12/2017 SUBJECTIVE: A 67-year-old white female postop day 2 from a left total hip replacement. A little bit of a rough night with some muscle spasms. Doing better this morning. No chest pain or shortness of breath. Not feeling dizzy or lightheaded. OBJECTIVE: VITAL SIGNS: Temperature 37.0. Vital signs stable. GENERAL: Reveals a pleasant, middle-aged female. She is walking around the room this morning with a walker and looks quite comfortable. EXTREMITIES: Examination of left hip reveals the dressing to be clean, dry and intact. Thigh is soft and supple. Hip is located. She is neurologically intact. LABORATORY DATA: Pending. ASSESSMENT: A 67-year-old white female postop day 2 from left total hip replacement, doing well. A pretty restless night with some muscle spasms, but doing better this morning. This is something that will just get better with time. PLAN: 1. DVT prophylaxis including thigh-high TEDs, SCDs, and aspirin twice a day. 2. PT and OT. Weight bear as tolerated. Left total hip protocol. 3. Pain control, doing pretty well with current pain regimen. 4. Disposition: Plan to discharge to home with some home health later today.
[2017-09-12 08:48] VITALS: BP 117/69
[2017-09-12 10:00] VITALS: BP 118/68; PULSE 73; TEMP 37; O2SAT 95
--- NOTE | 2017-09-12 15:24 | Anesthesiology Progress Note ---
Anesthesia Post Op Note Date & Time Sep 12, 2017 at 15:23 Vital Signs Pain Intensity: 4.0 Vital Signs Past 12 Hours Date Time Temp Pulse Resp B/P (MAP) Pulse Ox O2 Delivery O2 Flow Rate FiO2 09/12/17 10:00 37.0 73 14 95 Room Air 09/12/17 07:15 Room Air 09/12/17 06:40 37.0 73 14 118/68 (85) 95 Room Air Notes Mental Status: alert / awake / arousable, participated in evaluation Pt Amnestic to Procedure: Yes Nausea / Vomiting: adequately controlled Pain: adequately controlled Airway Patency, RR, SpO2: stable & adequate BP & HR: stable & adequate Hydration State: stable & adequate Neuraxial Anesthesia: sensory block resolved Anesthetic Complications: no major complications apparent This post-op visit was made on September 11, 2017 @ 07:30 AM
== END 2017-09-12 14:13 | disposition home health service (06) | DRG 470 ==
LOC: C.OR 05:03 → C.3E 06:30 → ENRESERV 09:14
PROVIDERS: ADMIT Orthopaedic Surgery Sports Medicine; ATTEND Orthopaedic Surgery Sports Medicine
PROC: 0SRB04A Replacement of Left Hip Joint with Ceramic on Polyethylene Synthetic Substitute, Uncemented, Open Approach (ICD-10-PCS; principal; 2017-09-10 07:00)
DX: M16.12 Unilateral primary osteoarthritis, left hip (principal); M62.838 Other muscle spasm; R11.0 Nausea; T40.2X5A Adverse effect of other opioids, initial encounter; Y92.230 Patient room in hospital as the place of occurrence of the external cause; I10 Essential (primary) hypertension; E11.9 Type 2 diabetes mellitus without complications; E78.00 Pure hypercholesterolemia, unspecified; E78.5 Hyperlipidemia, unspecified; M54.5 Low back pain; G47.33 Obstructive sleep apnea (adult) (pediatric); E66.9 Obesity, unspecified; Z68.37 Body mass index [BMI] 37.0-37.9, adult; Z99.89 Dependence on other enabling machines and devices; Z79.1 Long term (current) use of non-steroidal anti-inflammatories (NSAID); Z79.82 Long term (current) use of aspirin; Z79.84 Long term (current) use of oral hypoglycemic drugs; Z79.899 Other long term (current) drug therapy; Z88.0 Allergy status to penicillin; Z88.1 Allergy status to other antibiotic agents; Z88.8 Allergy status to other drugs, medicaments and biological substances